=== PATIENT | male | born 1995 | race Caucasian/White ===

== ENCOUNTER → 2020-09-22 | Outpatient (CLI) | payer OTHER ==
[~2020-09-22] MED LIST: CEPHALEXIN500 M1 PO; MOTRIN600 MG PO
== END | disposition home or self-care (01) ==
LOC: COVID19 14:43
PROVIDERS: ATTEND Nurse Practitioner Family
DX: Z20.828 Contact with and (suspected) exposure to other viral communicable diseases (principal)